=== PATIENT | male | born 1965 | race Two or more races ===

== ENCOUNTER 2016-12-30 14:28 | Emergency (ER) | payer OTHER ==
[~2016-12-30] VITALS: Ht 172.7 cm; Wt 103.4 kg
[~2016-12-30 14:28] MED LIST: METFORMIN HCL500 M1 ORAL
[2016-12-30] MEDS ORDERED: Morphine Sulfate 4mg/ml Inj IVP ONE (14:30)
[2016-12-30] MEDS ORDERED: Famotidine 20 MG/ 2ML VIAL IVP ONE (14:30)
--- NOTE | 2016-12-30 14:37 | Emergency Room Report ---
History of Present Illness General Chief Complaint: Chest Pain Source: Patient, EMS Present Illness HPI The patient presents with 2 problems. He's had chest pain for the last 2 days. Describes it substernal and bilaterally. It radiates towards his back and also bilateral flanks. It makes him feel short of breath and is somewhat pleuritic and exertional. There's no risk factors. The second problem is a headache which he's had for 2 weeks. He's been taking Tylenol and Advil. These have not helped. Pressure in his head like a band around the top of his head. He states he gets dizzy wihen the headache gets more painful. Denies loss of consciousness. He denies any head trauma. The patient is a history of psoriasis. He was seen by and no workup was done recently. They were considering possible treatment for high blood pressure. Paramedics gave the patient four 162 mg aspirins and 2 sprays of nitroglycerin. The patient didn't get much relief with this. They report a normal EKG. The patient denies any nausea, vomiting, diarrhea, change in bowel habits, dysuria, fevers, productive cough, trauma. Allergies: Coded Allergies: No Known Allergies (Unverified , 12/30/16) Patient History Past Medical History: see triage record Social History: Denies: smoking Social History Narrative morejon Reviewed Nursing Documentation: PMH: Agreed, PSxH: Agreed Nursing Documentation-PMH Past Medical History: No History, Except For Hx Hypertension: Yes Hx Diabetes: Yes Review of Systems All Other Systems: negative except mentioned in HPI Physical Exam Vital Signs Date Time Temp Pulse Resp B/P Pulse Ox O2 Delivery O2 Flow Rate FiO2 12/30/16 14:22 98.2 110 20 119/76 96 Room Air Sp02 EP Interpretation: reviewed, normal General Appearance: well appearing, GCS 15, mild distress Head: normocephalic Eyes: bilateral eye PERRL, bilateral eye normal inspection ENT: moist mucus membranes Neck: supple Respiratory: chest non-tender, lungs clear, normal breath sounds Cardiovascular #1: regular rate, rhythm Cardiovascular #2: 2+ radial (R) Gastrointestinal: normal inspection, normal bowel sounds, non tender, no mass, non-distended, overweight Musculoskeletal: back normal, gait/station normal, normal range of motion Neurologic: alert, oriented x3, pathology laboratory technologist III-XII nml as tested, motor strength/tone normal, DTRs symmetric, sensory intact, cerebellar normal, normal gait, speech normal Psychiatric: mood/affect normal Skin: warm/dry, other - Psoriatic lesions Medical Decision Making Diagnostic Impression: Primary Impression: Chest pain Qualified Codes: R07.9 - Chest pain, unspecified Additional Impressions: Headache Qualified Codes: R51 - Headache Cysticercosis ER Course Patient presents with chest pain headache. Differential includes acute myocardial infarction, acute coronary syndrome, pleurisy, costochondritis, pulmonary embolus, GERD amongst others. The patient will be evaluated with EKG , chest x-ray, CT of the head, labs. He be treated with morphine and Pepcid. The patient received aspirin and nitrates in the field. Exam against PE. EKG is normal here. Chest x-ray is poor inspiration. Labs are significant for negative troponin. The patient still had headache after the morphine. Dilaudid was given. This started to give him some relief. He was complaining to the nurse more left- sided sharp knifelike chest pain which radiated to his abdomen (to me he has complained about R sided symptoms). His abdomen is benign. The patient was presented to Dr. Tenorio who accepted the patient in transfer. Laboratory Tests Test 12/30/16 14:43 White Blood Count 10.7 K/UL (4.8-10.8) Red Blood Count 5.42 M/UL (4.70-6.10) Hemoglobin 14.3 G/DL (14.2-18.0) Hematocrit 46.1 % (42.0-52.0) Mean Corpuscular Volume 85 FL (80-99) Mean Corpuscular Hemoglobin 26.5 PG (27.0-31.0) L Mean Corpuscular Hemoglobin Concent 31.1 G/DL (32.0-36.0) L Red Cell Distribution Width 12.2 % (11.6-14.8) Platelet Count 366 K/UL (150-450) Mean Platelet Volume 5.8 FL (6.5-10.1) L Neutrophils (%) (Auto) 65.5 % (45.0-75.0) Lymphocytes (%) (Auto) 24.3 % (20.0-45.0) Monocytes (%) (Auto) 7.2 % (1.0-10.0) Eosinophils (%) (Auto) 2.2 % (0.0-3.0) Basophils (%) (Auto) 0.9 % (0.0-2.0) Prothrombin Time 10.1 SEC (9.30-11.50) Prothrombin Time INR 1.0 (0.9-1.1) PTT 27 SEC (23-33) Sodium Level 138 mEQ/L (135-145) Potassium Level 4.0 mEQ/L (3.4-4.9) Chloride Level 102 mEQ/L (98-107) Carbon Dioxide Level 25 mEQ/L (20-30) Anion Gap 11 (5-15) Blood Urea Nitrogen 19 mg/dL (7-23) Creatinine 0.8 mg/dL (0.7-1.2) Estimate Glomerular Filtration Rate > 60 mL/min (>60) Glucose Level 131 mg/dL (74-106) H Calcium Level 9.5 mg/dL (8.6-10.2) Total Bilirubin < 0.2 mg/dL (0.0-1.2) Aspartate Amino Transferase (AST) 31 U/L (5-40) Alanine Aminotransferase (ALT) 44 U/L (3-41) H Alkaline Phosphatase 96 U/L (40-129) Total Creatine Kinase 79 U/L (38-174) Troponin I < 0.30 ng/mL (<=0.30) Pro-B-Type Natriuretic Peptide 20 pg/mL (0-125) Total Protein 7.1 g/dL (6.6-8.7) Albumin 4.0 g/dL (3.5-5.2) Globulin 3.1 g/dL Albumin/Globulin Ratio 1.2 (1.0-2.7) EKG Diagnostic Results Rate: normal Rhythm: NSR ST Segments: no acute changes Rhythm Strip Diag. Results EP Interpretation: yes Rhythm: NSR, no PVC's, no ectopy Chest X-Ray Diagnostic Results Chest X-Ray Diagnostic Results : Chest X-Ray Ordered: Yes # of Views/Limited/Complete: 1 View Indication: Chest Pain EP Interpretation: Yes Interpretation: no consolidation, no effusion, no pneumothorax, no acute cardiopulmonary disease, other - poor inspiration CT/MRI/US Diagnostic Results CT/MRI/US Diagnostic Results : Imaging Test Ordered: head Impression R frontal cysticercosis. Last Vital Signs Date Time Temp Pulse Resp B/P Pulse Ox O2 Delivery O2 Flow Rate FiO2 12/30/16 20:20 97.9 75 12 143/85 98 Room Air Status: improved Disposition: XFER SHT-TRM HOSP Condition: Serious - but stable for transfer Bruno Szymanski M.D. Dec 30, 2016 14:37
[2016-12-30 15:00] VITALS: BP 113/78
[2016-12-30 15:05] LABS: BASOPHILS % (AUTO) 0.9 % (0.0-2.0); EOSINOPHILS % (AUTO) 2.2 % (0.0-3.0); LYMPHOCYTES % (AUTO) 24.3 % (20.0-45.0); MEAN CORPUSCULAR HEMOGLOBIN 26.5 PG (27.0-31.0); MEAN CORPUSCULAR HGB CONC 31.1 G/DL (32.0-36.0); MEAN CORPUSCULAR VOLUME 85 FL (80-99); MEAN PLATELET VOLUME 5.8 FL (6.5-10.1); MONOCYTES % (AUTO) 7.2 % (1.0-10.0); NEUTROPHILS % (AUTO) 65.5 % (45.0-75.0); PLATELET COUNT 366 K/UL (150-450); RED BLOOD COUNT 5.42 M/UL (4.70-6.10); RED CELL DISTRIBUTION WIDTH 12.2 % (11.6-14.8); WHITE BLOOD COUNT 10.7 K/UL (4.8-10.8)
--- NOTE | 2016-12-30 15:06 | Diagnostic Imaging Report ---
Indication: Dyspnea Comparison: None A single view chest radiograph was obtained. Findings: Heart is enlarged. The lungs are clear but low in volume. Bones are unremarkable. Impression: No acute findings
[2016-12-30 15:24] LABS: PROTHROMBIN TIME 10.1 SEC (9.30-11.50)
--- NOTE | 2016-12-30 15:27 | Diagnostic Imaging Report ---
Indication: Headache Technique: Contiguous 5 mm thick transaxial imaging of the head obtained in a Siemens Sensation [address] scanner. Soft tissue and bone windows generated. Total Dose length Product (DLP): [address] Dose Index Volume (CTDIvol): 70.38 mGy Comparison: none Findings: Single punctate focus of parenchymal calcification noted within the right frontal lobe (image 12, series 3). This is nonspecific but may be due to cysticercosis. The size and configuration of the cortical sulci, basal cisterns, and ventricles are within normal limits for age. There is no mass effect, midline shift, or edema identified. There is no evidence of acute hemorrhage or abnormal intra-axial or extra-axial fluid collections. The bones and soft tissues are unremarkable. Impression: No mass effect, edema or acute bleed. Focal parenchymal calcification in the right frontal lobe. This may be due to cysticercosis. The CT scanner at [facility] is accredited by the [employer] and the scans are performed using dose optimization techniques as appropriate to a performed exam including Automatic Exposure control.
[2016-12-30 15:31] LABS: TROPONIN I < 0.30 ng/mL (<=0.30)
[2016-12-30 15:34] LABS: ALANINE AMINOTRANSFERASE 44 U/L (3-41); ALBUMIN/GLOBULIN RATIO 1.2 (1.0-2.7); ANION GAP 11 (5-15); ASPARTATE AMINO TRANSFERASE 31 U/L (5-40); CALCIUM 9.5 mg/dL (8.6-10.2); CARBON DIOXIDE 25 mEQ/L (20-30); CHLORIDE 102 mEQ/L (98-107); CREATININE 0.8 mg/dL (0.7-1.2); GLOMERULAR FILTRATION RATE > 60 mL/min (>60); HEMOLYSIS 3; SODIUM 138 mEQ/L (135-145); TOTAL PROTEIN 7.1 g/dL (6.6-8.7)
[2016-12-30] MEDS ORDERED: LISINOPRIL20 MG ORAL (15:44)
[2016-12-30 16:25] VITALS: BP 115/70
[2016-12-30] MEDS ORDERED: HYDROmorphone 1mg/ml Carpuject IVP ONE (16:45)
[2016-12-30 18:30] VITALS: BP 139/92
[2016-12-30 19:21] VITALS: BP 131/90
[2016-12-30 20:05] VITALS: BP 143/85
[2016-12-30 20:20] VITALS: BP 143/85
--- NOTE | 2017-01-01 17:53 | Cardiology Report ---
APPROVED REPORT EKG Measurement Heart [id number] Sinus tachycardia Otherwise normal ECG
== END 2016-12-30 20:20 | disposition short-term general hospital (02) ==
LOC: EDBD 14:28 → EMR 16:15
DX: R07.9 Chest pain, unspecified (principal); R51 Headache; B69.9 Cysticercosis, unspecified; I10 Essential (primary) hypertension; E11.9 Type 2 diabetes mellitus without complications; I51.7 Cardiomegaly
CPT/HCPCS: 36415; 70450; 71010; 80053; 82550; 82962; 83880; 84484; 85025; 85610; 85730; 93005; 96374; 96375; 99285; J1170; J2270; J2405; S0028